=== PATIENT | male | born 2000 | race Caucasian/White ===

== ENCOUNTER 2023-03-12 02:18 | Emergency (ER) | payer SELFPAY ==
[2023-03-12] MEDS ORDERED: Ondansetron 4 MG Tab.DIS PO ONE (02:40)
[2023-03-12 03:20] LABS: CORONAVIRUS COVID-19 NAA NEGATIVE (NEGATIVE); INFLUENZA A NAA POSITIVE (NEGATIVE); INFLUENZA B NAA NEGATIVE (NEGATIVE)
== END 2023-03-12 03:49 | disposition home or self-care (01) ==
LOC: MW.ED 02:18
DX: J10.1 Influenza due to other identified influenza virus with other respiratory manifestations (principal)
CPT/HCPCS: 0240U; 99284; A9270; 99283